=== PATIENT | male | born 1970 | race Caucasian/White ===

== ENCOUNTER 2016-11-20 10:37 | Emergency (ER) | payer SELFPAY ==
[2016-11-20] MEDS ORDERED: Ondansetron HCl/PF 4 MG/2 ML Vial ONE (11:24)
[2016-11-20 11:26] LABS: #Basophils 0.1 thou/uL (0.0-0.2); #Eosinphils 0.1 thou/uL (0.0-0.7); #Lymphocytes 2.4 thou/uL (1.20-3.40); #Monocytes 0.6 thou/uL (0.11-0.59); #Neutrophils 6.3 thou/uL (1.40-6.50); %Basophils 0.7 % (0.0-1.0); %Eosinophils 1.5 % (0.0-10.0); %Lymphocytes 25.3 % (21.0-51.0); %Neutrophils 66.5 % (42.0-75.0); Hemoglobin 15.9 g/dL (14.0-18.0); Mean Corpuscular HGB CONC 34.3 g/dL (32.0-36.0); Mean Corpuscular Hemoglobin 31.1 pg (27.0-31.0); Mean Corpuscular Volume 90.6 fl (80.0-94.0); Platelet Count 239 thou/uL (130-400); RBC Distribution Width 11.5 % (11.5-14.5); Red Blood Cell (RBC) Count 5.11 mill/uL (4.70-6.10); White Blood Cell (WBC) Count 9.5 thou/uL (4.8-10.8)
[2016-11-20 11:44] LABS: ALT (SGPT) 33 U/L (0-55); AST (SGOT) 20 U/L (5-34); Albumin 4.4 g/dL (3.5-5.0); Alkaline Phosphatase 53 U/L (40-150); Anion Gap 17 mmol/L (10-20); BUN (Urea Nitrogen) 13 mg/dL (8.9-20.6); Bilirubin, Total 0.5 mg/dL (0.2-1.2); Calc. Creatinine Clearance 0 mL/min (70-130); Calcium 8.9 mg/dL (7.8-10.44); Carbon Dioxide 20 mmol/L (22-29); Chloride 105 mmol/L (98-107); Estimated GFR-MDRD Greater than 90; Globulin 2.8 g/dL (2.4-3.5); Glucose 186 mg/dL (70-105); Potassium 3.7 mmol/L (3.5-5.1); Protein, Total 7.2 g/dL (6.0-8.3); Sodium 138 mmol/L (136-145)
[2016-11-20] MEDS ORDERED: Dexamethasone 10 MG/ML VIAL ONE (12:46)
--- NOTE | 2016-11-20 13:52 | CT ---
NONCONTRAST CT OF LUMBAR SPINE: Date: 11/20/16 INDICATION: Lower left-sided back pain, worsened over last 3 days. COMPARISON: None. FINDINGS: There are five lumbar-type vertebral bodies. There is multilevel disc degenerative disc, most pronou nced at L5-S1. There is some mild vacuum disc phenomenon at L5-S1, likely indicative of some underly ing disc instability. The visualized retroperitoneal and paravertebral soft tissues are unremarkable . There are some scattered vascular calcifications noted involving the common iliac arteries. There is mild to moderate right and mild left SI joint degenerative change. At the L5-S1 level, there is at least a mild broad based disc bulge inducing mild bilateral neural f oraminal narrowing. At L4-5, there is at least a mild broad based disc bulge with a superimposed central protrusion at L 4-5 inducing at least mild central canal narrowing with mild bilateral neural foraminal narrowing. At L3-4, there is a broad based disc bulge with facet joint degenerative change inducing at least mi ld central canal narrowing and mild bilateral neural foraminal narrowing. At L2-3, there is no appreciable central canal or neural foraminal narrowing. At L1-2, there is no appreciable central canal or neural foraminal narrowing. IMPRESSION: Mild multilevel spondylosis of the lumbar spine with evidence of disc degenerative facet osteoarthri tic change as above. Follow-up MRI of the lumbar spine may be helpful for improved characterization of the extent of the central canal neural foraminal narrowing present. POS: [facility]
== END 2016-11-20 13:57 | disposition home or self-care (01) ==
LOC: MADERS 10:37
DX: M51.16 Intervertebral disc disorders with radiculopathy, lumbar region (principal); I10 Essential (primary) hypertension; F17.210 Nicotine dependence, cigarettes, uncomplicated; Z79.899 Other long term (current) drug therapy
CPT/HCPCS: 36415; 72131; 80053; 85025; 86140; 96372; 96374; 96375; 96376; J1040; J1100; J1170; J2405

== ENCOUNTER 2016-12-10 20:38 | Emergency (ER) | payer SELFPAY ==
[2016-12-10] MEDS ORDERED: HYDROcodone/Acetaminophen 10/325 mg Tablet ONE (21:42)
[2016-12-10] MEDS ORDERED: Sulfameth/Trimethoprim DS 800-160mg TAB ONE (21:43)
[2016-12-10] MEDS ORDERED: Ketorolac Tromethamine 60 MG/2 ML VIAL ONE (21:43)
[2016-12-10] MEDS ORDERED: Clindamycin 150 MG CAP ONE (21:43)
== END 2016-12-10 22:18 | disposition home or self-care (01) ==
LOC: MADERS 20:38
DX: L03.311 Cellulitis of abdominal wall (principal); I10 Essential (primary) hypertension; F17.210 Nicotine dependence, cigarettes, uncomplicated; Z79.84 Long term (current) use of oral hypoglycemic drugs; Z79.899 Other long term (current) drug therapy
CPT/HCPCS: 87070; 87077; 87186; 87205; 96372; J1885